=== PATIENT | female | born 1960 | race Caucasian/White ===

== ENCOUNTER → 2023-08-29 06:57 | Outpatient (REF) | payer BC, SELFPAY ==
[2023-08-31 00:22] LABS: Calprotectin, Fecal 8 ug/g (<=49)
== END ==
LOC: REG 06:57
PROVIDERS: ATTENDING PHYSICIAN Nurse Practitioner; FAMILY PHYSICIAN Internal Medicine Gastroenterology; REFERRING PHYSICIAN Internal Medicine
DX: A04.72 Enterocolitis due to Clostridium difficile, not specified as recurrent (principal); R19.5 Other fecal abnormalities
CPT/HCPCS: 36415; 83993; 87045; 87046; 87324; 87427; 87449; 89055

== ENCOUNTER → 2024-04-25 18:46 | Outpatient (REF) | payer MEDICARE, SELFPAY | LOC: PAVMRI 18:46 | PROVIDERS: ATTENDING PHYSICIAN Internal Medicine | DX: M25.561 Pain in right knee (principal) | CPT/HCPCS: 73721 ==

== ENCOUNTER → 2024-10-08 09:15 | Outpatient (REF) | payer MEDICARE, SELFPAY | LOC: MRI 3T 09:15 | PROVIDERS: ATTENDING PHYSICIAN Specialist; FAMILY PHYSICIAN Internal Medicine | DX: M25.562 Pain in left knee (principal) | CPT/HCPCS: 73721 ==

== ENCOUNTER → 2025-01-17 14:25 | Outpatient (REF) | payer MEDICARE, SELFPAY | LOC: RAD 14:25 | PROVIDERS: ATTENDING PHYSICIAN Internal Medicine | DX: E78.00 Pure hypercholesterolemia, unspecified (principal) | CPT/HCPCS: 75571 ==